=== PATIENT | female | born 1950 | race African-American/Black ===

== ENCOUNTER 2017-10-11 06:52 | Emergency (ER) | payer OTHER ==
[~2017-10-11] VITALS: Ht 165.1 cm; Wt 112.0 kg
[2017-10-11 07:32] VITALS: BP 125/93
== END 2017-10-11 09:00 | disposition left against medical advice (07) ==
LOC: ER 08:29
DX: R53.1 Weakness (principal); Z53.21 Procedure and treatment not carried out due to patient leaving prior to being seen by health care provider